=== PATIENT | male | born 1950 | race Two or more races ===

== ENCOUNTER 2018-03-16 05:22 | Inpatient (IN) | payer BC, MEDICAID ==
[~2018-03-16] VITALS: Ht 177.8 cm; Wt 104.3 kg
[2018-03-16] MEDS ORDERED: DEXTROSE 50% SYRINGE 50 ML IV ONE (05:24)
[2018-03-16] MEDS ORDERED: DEXTROSE (50%) 50ML SYRG IV ONE ×2 (05:45→10:00)
[2018-03-16 05:57] LABS: Basophils # (auto) 0 uL; Basophils % (auto) 0.8 % (0.0-2.0); Eosinophils # (auto) 0.3 uL; Eosinophils % (auto) 5.3 % (0.0-7.0); Hematocrit 25.1 % (41.0-53.0); Hemoglobin 8.4 g/dL (13.5-17.5); Lymphocytes # (auto) 0.9 uL; Lymphocytes % (auto) 15.4 % (10.0-50.0); Mean Corpuscular Hemoglobin 33.5 pg (28.0-32.0); Mean Corpuscular Hgb Conc. 33.5 g/dL (32.0-36.0); Mean Corpuscular Volume 100.1 fL (80.0-100.0); Monocytes # (auto) 0.3 uL; Monocytes % (auto) 5.6 % (0.0-12.0); Neutrophils # (auto) 4.1 uL; Neutrophils % (auto) 72.9 % (37.0-80.0); Platelet Count (auto) 119 10^3/uL (140-450); Red Blood Cells 2.51 10^6/uL (4.5-5.90); Red Cell Distribution Width 14.4 % (11.8-14.3); White Blood Cell 5.7 10^3/uL (4.4-10.8)
[2018-03-16 06:23] LABS: Alcohol, Urine < 3.0 mg/dL (0-5); Amphetamine Screen, Urine NEGATIVE (NEGATIVE); Barbiturate Scree,Urine NEGATIVE (NEGATIVE); Benzodiazephine Screen, Urine NEGATIVE (NEGATIVE); Cannabinoid Screen, Urine NEGATIVE (NEGATIVE); Cocaine Screen, Urine NEGATIVE (NEGATIVE); Opiate Scree,Urine NEGATIVE (NEGATIVE); Phencyclidine Screen, Urine NEGATIVE (NEGATIVE)
[2018-03-16 06:25] LABS: Alanine Aminotransferase 11 U/L (16-61); Alkaline Phosphatase 79 U/L (45-117); Anion Gap 8 (5-15); Aspartate Aminotransferase 14 U/L (15-37); BUN/Creatinine Ratio 15.3; Bilirubin, Total 0.3 mg/dL (0.2-1.0); Blood Alcohol < 3.0 mg/dL (0-5); Blood Urea Nitrogen 38 mg/dL (7-18); Carbon Dioxide 22 mmol/L (21-32); Chloride 111 mmol/L (98-107); GFR African American 34 mL/min; GFR Non-African American 28 mL/min; Glucose 194 mg/dL (74-106); Potassium 5.5 mmol/L (3.5-5.1); Sodium 141 mmol/L (136-145); Total Protein 5.5 g/dL (6.4-8.2)
[2018-03-16 06:34] LABS: Urine Amorphous Crystal MOD /hpf (None Seen); Urine Bacteria MOD /hpf (None Seen); Urine Blood Negative /uL (Negative); Urine Specific Gravity 1.008 (1.001-1.035); Urine WBC 32 /hpf (0 - 3)
[2018-03-16] MEDS ORDERED: cefTRIAXone 1GM/10ml IVPUSH 10 ML IV ONE ×2 (12:45→13:15)
[2018-03-16] MEDS: SODIUM CHLORIDE 0.9% 1,000 ML IV SCH (13:09)
[2018-03-16] MEDS ORDERED: NITROGLYCERIN 0.4 MG SL TAB SL PRN (13:15)
[2018-03-16] MEDS ORDERED: FUROSEMIDE 40 MG/4 ML VIAL IV ONE (13:15)
[2018-03-16] MEDS ORDERED: SODIUM POLYSTYRENE SULF 15GM/60ML SUSP PO ONE (13:15)
[2018-03-16] MEDS ORDERED: PROMETHAZINE HCL 25 MG/ML 1ML IV PRN (13:15)
[2018-03-16] MEDS ORDERED: LORazepam 0.5 MG TAB PO PRN (13:15)
[2018-03-16] MEDS ORDERED: DEXTROSE (50%) 50ML SYRG IV PRN (13:15)
[2018-03-16] MEDS ORDERED: SODIUM CHLORIDE 0.9% 1,000 ML IV ONE (13:15)
[2018-03-16] MEDS ORDERED: MORPHINE SULF INJ 2 MG/ML SYRINGE 1ML IV PRN (13:15)
[2018-03-16] MEDS: ENOXAPARIN SOD 30 MG/0.3 ML SYRINGE SC SCH (13:28)
[2018-03-16] MEDS ORDERED: PIPERACILLIN-TAZOB 2.25GM 50 ML IV ONE (13:30)
[2018-03-16] MEDS: LINEZOLID 600MG/300ML 300 ML IV SCH ×2 (14:22→21:26)
[2018-03-16] MEDS: ACCU-CHEK COMFORT CURVE STRIP VI SCH ×3 (15:36→23:36)
[2018-03-16 16:42] LABS: Calcium 7.5 mg/dL (8.5-10.1); Potassium 5.2 mmol/L (3.5-5.1)
[2018-03-16 16:51] VITALS: BP 132/67
[2018-03-16 17:07] VITALS: BP 132/67
[2018-03-16] MEDS ORDERED: PANT1INJ3 PO (17:37)
[2018-03-16] MEDS ORDERED: DIV250ER PO (17:37)
[2018-03-16] MEDS ORDERED: BACL10TA PO (17:37)
[2018-03-16] MEDS ORDERED: FERR-20 PO (17:37)
[2018-03-16] MEDS ORDERED: INSR100KIT IV (17:37)
[2018-03-16] MEDS ORDERED: ATOR20TA50 PO (17:37)
[2018-03-16] MEDS ORDERED: MOMLQ PO (17:37)
[2018-03-16] MEDS ORDERED: ZOLP5TAB5 PO (17:37)
[2018-03-16] MEDS ORDERED: NIF30XLT PO (17:37)
[2018-03-16] MEDS ORDERED: CLON0.1T PO (17:37)
[2018-03-16] MEDS ORDERED: INSLANTI SC (17:37)
[2018-03-16] MEDS ORDERED: ASCO500T11 PO (17:37)
[2018-03-16] MEDS ORDERED: NIC21P TOP (17:37)
[2018-03-16] MEDS ORDERED: ASPI81TA27 PO (17:37)
[2018-03-16] MEDS ORDERED: LORA-654 PO (17:37)
[2018-03-16] MEDS ORDERED: DOCU-94 PO (17:37)
[2018-03-16] MEDS ORDERED: CAR3125T OR (17:37)
[2018-03-16] MEDS ORDERED: B-COTAB59 OR (17:37)
[2018-03-16] MEDS ORDERED: PERCOT PO ×2 (17:37)
[2018-03-16] MEDS ORDERED: MULT-228 PO (17:37)
[2018-03-16] MEDS ORDERED: BIS10RS PR (17:37)
[2018-03-16] MEDS ORDERED: SODIENE35 RE (17:37)
[2018-03-16] MEDS: PIPERACILLIN-TAZOB 2.25GM 50 ML IV SCH ×2 (17:48→23:26)
[2018-03-16] MEDS: ACETAMINOPHEN 500 MG TAB PO PRN (21:26)
[2018-03-16 21:40] VITALS: BP 151/70
[2018-03-16] MEDS: MORPHINE SULF INJ 2 MG/ML SYRINGE 1ML IV PRN (23:07)
[2018-03-17] MEDS: SODIUM CHLORIDE 0.9% 1,000 ML IV SCH ×2 (01:39→12:13)
[2018-03-17] MEDS: MORPHINE SULF INJ 2 MG/ML SYRINGE 1ML IV PRN ×2 (03:28→21:17)
[2018-03-17] MEDS: ACCU-CHEK COMFORT CURVE STRIP VI SCH ×6 (03:28→23:25)
[2018-03-17 04:40] VITALS: BP 137/69
[2018-03-17] MEDS: PIPERACILLIN-TAZOB 2.25GM 50 ML IV SCH ×4 (06:05→23:25)
[2018-03-17 09:00] VITALS: BP 145/72
[2018-03-17] MEDS ORDERED: cefTRIAXone 1GM/10ml IVPUSH 10 ML IV SCH (09:00)
[2018-03-17] MEDS: PANTOPRAZOLE 40 MG TAB PO SCH (09:14)
[2018-03-17] MEDS: LINEZOLID 600MG/300ML 300 ML IV SCH ×2 (09:14→21:17)
[2018-03-17] MEDS: ENOXAPARIN SOD 30 MG/0.3 ML SYRINGE SC SCH (09:15)
[2018-03-17 13:00] VITALS: BP 142/64
[2018-03-17 14:02] LABS: BUN/Creatinine Ratio 13.3; Bilirubin, Total 0.3 mg/dL (0.2-1.0); Calcium 7.1 mg/dL (8.5-10.1); Hemoglobin 8.3 g/dL (13.5-17.5); Platelet Count (auto) 110 10^3/uL (140-450); Potassium 4.7 mmol/L (3.5-5.1); Red Cell Distribution Width 14.5 % (11.8-14.3); Total Protein 5.8 g/dL (6.4-8.2)
[2018-03-17 14:05] LABS: Hematocrit 25.1 % (41.0-53.0); Mean Corpuscular Hemoglobin 33.3 pg (28.0-32.0); Mean Corpuscular Hgb Conc. 33.3 g/dL (32.0-36.0); Mean Corpuscular Volume 100.1 fL (80.0-100.0); Red Blood Cells 2.51 10^6/uL (4.5-5.90); White Blood Cell 4.8 10^3/uL (4.4-10.8)
[2018-03-17 14:11] LABS: Protein, Urine 127.9 mg/dL (0.0-11.9)
[2018-03-17 14:21] LABS: Band Neutrophils % (manual) 0; Basophils % (manual) 0 (0.0-2.0); Blast Cells 0; Metamyelocytes % 0; Myelocytes % 0; Promyelocytes % 0; Reactive Lymphocytes 0
[2018-03-17 14:35] LABS: BUN/Creatinine Ratio 12.8; Calcium 6.9 mg/dL (8.5-10.1); Potassium 4.7 mmol/L (3.5-5.1)
[2018-03-17 16:48] LABS: Eosinophils % (manual) 16 (0-7); Lymphocytes % (manual) 38 (10.0-50.0); Monocytes % (manual) 3 (0-12)
[2018-03-17 17:00] VITALS: BP 165/76
[2018-03-17] MEDS ORDERED: MULTIPLE VITAMIN TAB PO ONE (17:45)
[2018-03-17] MEDS: Glucerna Carbsteady SHAKE Vanilla 8oz PO SCH ×2 (17:53→21:30)
[2018-03-17 21:31] VITALS: BP 184/78
[2018-03-17] MEDS: CARVEDILOL 3.125 MG TAB PO SCH (22:21)
[2018-03-17] MEDS: ACETAMINOPHEN 500 MG TAB PO PRN (23:26)
[2018-03-17] MEDS: cloNIDine HCL 0.1 MG TAB PO PRN (23:26)
[2018-03-18] MEDS: ACCU-CHEK COMFORT CURVE STRIP VI SCH ×6 (04:40→23:27)
[2018-03-18 04:49] VITALS: BP 145/71
[2018-03-18] MEDS: Glucerna Carbsteady SHAKE Vanilla 8oz PO SCH ×4 (06:00→21:13)
[2018-03-18] MEDS: SODIUM CHLORIDE 0.9% 1,000 ML IV SCH ×2 (06:06→19:37)
[2018-03-18] MEDS: PIPERACILLIN-TAZOB 2.25GM 50 ML IV SCH ×4 (06:06→23:27)
[2018-03-18] MEDS: MORPHINE SULF INJ 2 MG/ML SYRINGE 1ML IV PRN ×4 (06:14→22:18)
[2018-03-18 09:00] VITALS: BP 178/78
[2018-03-18] MEDS ORDERED: ASPirin-EC 81 mg tab PO ONE (10:15)
[2018-03-18] MEDS: PANTOPRAZOLE 40 MG TAB PO SCH (10:35)
[2018-03-18] MEDS: LINEZOLID 600MG/300ML 300 ML IV SCH ×2 (10:35→21:12)
[2018-03-18] MEDS: NIFEdipine ER 30 MG TAB PO SCH (10:36)
[2018-03-18] MEDS: CARVEDILOL 3.125 MG TAB PO SCH ×2 (10:37→21:13)
[2018-03-18] MEDS: ENOXAPARIN SOD 30 MG/0.3 ML SYRINGE SC SCH (10:37)
[2018-03-18 11:49] LABS: Hematocrit 26.4 % (41.0-53.0); Hemoglobin 8.9 g/dL (13.5-17.5); Mean Corpuscular Hgb Conc. 33.9 g/dL (32.0-36.0); Mean Corpuscular Volume 100.5 fL (80.0-100.0); Platelet Count (auto) 125 10^3/uL (140-450); Red Blood Cells 2.63 10^6/uL (4.5-5.90); Red Cell Distribution Width 14.3 % (11.8-14.3); White Blood Cell 4.8 10^3/uL (4.4-10.8)
[2018-03-18 11:51] LABS: BUN/Creatinine Ratio 11.8; Calcium 7.1 mg/dL (8.5-10.1); Potassium 4.4 mmol/L (3.5-5.1)
[2018-03-18 12:39] LABS: Band Neutrophils % (manual) 0; Basophils % (manual) 0 (0.0-2.0); Blast Cells 0; Metamyelocytes % 0; Myelocytes % 0; Promyelocytes % 0; Reactive Lymphocytes 0
[2018-03-18 13:00] VITALS: BP 162/78
[2018-03-18] MEDS: cloNIDine HCL 0.1 MG TAB PO PRN ×2 (13:36→22:19)
[2018-03-18 14:06] LABS: Eosinophils % (manual) 17 (0-7); Lymphocytes % (manual) 27 (10.0-50.0); Monocytes % (manual) 9 (0-12)
[2018-03-18 17:00] VITALS: BP 194/87
[2018-03-18 18:05] VITALS: BP 159/76
[2018-03-18] MEDS: ATORVASTATIN 20 MG TAB PO SCH (21:13)
[2018-03-18] MEDS: TEMAZEPAM 15 MG CAP PO PRN (23:28)
[2018-03-19] MEDS: SODIUM CHLORIDE 0.9% 1,000 ML IV SCH ×2 (04:01→09:45)
[2018-03-19] MEDS: cloNIDine HCL 0.1 MG TAB PO PRN (04:35)
[2018-03-19] MEDS: ACCU-CHEK COMFORT CURVE STRIP VI SCH ×5 (04:35→20:16)
[2018-03-19] MEDS: MORPHINE SULF INJ 2 MG/ML SYRINGE 1ML IV PRN ×5 (04:35→20:32)
[2018-03-19 04:54] VITALS: BP 164/75
[2018-03-19] MEDS: PIPERACILLIN-TAZOB 2.25GM 50 ML IV SCH ×3 (05:27→18:27)
[2018-03-19] MEDS: Glucerna Carbsteady SHAKE Vanilla 8oz PO SCH ×4 (05:34→22:08)
[2018-03-19 09:00] VITALS: BP 153/78
[2018-03-19] MEDS: LACTULOSE 20Gm/30ML SOLN PO PRN ×2 (09:04→09:34)
[2018-03-19] MEDS: ASPirin-EC 81 mg tab PO SCH (09:34)
[2018-03-19] MEDS: ENOXAPARIN SOD 40 MG/0.4 ML SYRINGE SC SCH (09:34)
[2018-03-19] MEDS: CARVEDILOL 3.125 MG TAB PO SCH ×2 (09:37→22:07)
[2018-03-19] MEDS: LINEZOLID 600MG/300ML 300 ML IV SCH ×2 (09:39→22:06)
[2018-03-19] MEDS: NIFEdipine ER 30 MG TAB PO SCH (09:58)
[2018-03-19] MEDS: PANTOPRAZOLE 40 MG TAB PO SCH (09:59)
[2018-03-19] MEDS ORDERED: NIFEdipine ER 30 MG TAB PO ONE (14:45)
[2018-03-19 16:12] VITALS: BP 158/71
[2018-03-19 17:00] VITALS: BP 139/76
[2018-03-19 20:00] VITALS: BP 145/70
[2018-03-19 22:00] VITALS: BP 145/70
[2018-03-19] MEDS: ATORVASTATIN 20 MG TAB PO SCH (22:08)
[2018-03-19] MEDS: TEMAZEPAM 15 MG CAP PO PRN (22:09)
[2018-03-20] MEDS: ACCU-CHEK COMFORT CURVE STRIP VI SCH ×4 (04:07→11:42)
[2018-03-20 05:00] VITALS: BP 149/73
[2018-03-20] MEDS: PIPERACILLIN-TAZOB 2.25GM 50 ML IV SCH ×3 (05:34→11:41)
[2018-03-20] MEDS: Glucerna Carbsteady SHAKE Vanilla 8oz PO SCH ×2 (05:35→11:41)
[2018-03-20 06:47] LABS: Basophils # (auto) 0.1 uL; Eosinophils # (auto) 0.7 uL; Hematocrit 25.8 % (41.0-53.0); Monocytes # (auto) 0.4 uL; Neutrophils # (auto) 1.7 uL; Nucleated Red Blood Cells % 0.1 %; Red Blood Cells 2.61 10^6/uL (4.5-5.90); Red Cell Distribution Width 13.7 % (11.8-14.3)
[2018-03-20 06:57] LABS: Basophils % (auto) 1.2 % (0.0-2.0); Eosinophils % (auto) 12.4 % (0.0-7.0); Hemoglobin 8.9 g/dL (13.5-17.5); Lymphocytes # (auto) 2.7 uL; Lymphocytes % (auto) 48.2 % (10.0-50.0); Mean Corpuscular Hgb Conc. 34.4 g/dL (32.0-36.0); Mean Corpuscular Volume 98.9 fL (80.0-100.0); Monocytes % (auto) 7.4 % (0.0-12.0); Neutrophils % (auto) 30.8 % (37.0-80.0); Platelet Count (auto) 130 10^3/uL (140-450); White Blood Cell 5.5 10^3/uL (4.4-10.8)
[2018-03-20 07:10] LABS: BUN/Creatinine Ratio 9.5; Calcium 7.4 mg/dL (8.5-10.1); Potassium 3.9 mmol/L (3.5-5.1)
[2018-03-20 09:00] VITALS: BP 141/88
[2018-03-20] MEDS: MORPHINE SULF INJ 2 MG/ML SYRINGE 1ML IV PRN ×2 (09:12→13:17)
[2018-03-20] MEDS ORDERED: NIFEdipine ER 30 MG TAB PO SCH (10:00)
[2018-03-20] MEDS: PANTOPRAZOLE 40 MG TAB PO SCH (10:01)
[2018-03-20] MEDS: ASPirin-EC 81 mg tab PO SCH (10:01)
[2018-03-20] MEDS: CARVEDILOL 3.125 MG TAB PO SCH (10:02)
[2018-03-20] MEDS: LINEZOLID 600MG/300ML 300 ML IV SCH (10:04)
[2018-03-20] MEDS: ENOXAPARIN SOD 40 MG/0.4 ML SYRINGE SC SCH (10:04)
[2018-03-20 13:09] VITALS: BP 140/76
[2018-03-20 16:51] VITALS: BP 165/84
== END 2018-03-20 17:45 | DRG 871 ==
LOC: EDSEX 05:22 → ER 05:22 → TELE 05:23 → TELE-WESTW 15:17
PROVIDERS: ADMIT Internal Medicine; ATTEND Internal Medicine
DX: A41.9 Sepsis, unspecified organism (principal); R53.2 Functional quadriplegia; E43 Unspecified severe protein-calorie malnutrition; G92 Toxic encephalopathy; N17.0 Acute kidney failure with tubular necrosis; N39.0 Urinary tract infection, site not specified; N18.4 Chronic kidney disease, stage 4 (severe); E87.1 Hypo-osmolality and hyponatremia; L03.114 Cellulitis of left upper limb; D63.1 Anemia in chronic kidney disease; D69.6 Thrombocytopenia, unspecified; E11.21 Type 2 diabetes mellitus with diabetic nephropathy; E11.22 Type 2 diabetes mellitus with diabetic chronic kidney disease; E11.40 Type 2 diabetes mellitus with diabetic neuropathy, unspecified; B96.89 Other specified bacterial agents as the cause of diseases classified elsewhere; E11.51 Type 2 diabetes mellitus with diabetic peripheral angiopathy without gangrene; E87.5 Hyperkalemia; E11.649 Type 2 diabetes mellitus with hypoglycemia without coma; I12.9 Hypertensive chronic kidney disease with stage 1 through stage 4 chronic kidney disease, or unspecified chronic kidney disease; Z86.14 Personal history of Methicillin resistant Staphylococcus aureus infection; Z86.73 Personal history of transient ischemic attack (TIA), and cerebral infarction without residual deficits; Z89.512 Acquired absence of left leg below knee; Z88.5 Allergy status to narcotic agent; Z89.421 Acquired absence of other right toe(s); Z68.33 Body mass index [BMI] 33.0-33.9, adult
CPT/HCPCS: 36415; 36600; 51702; 71045; 73060; 73090; 80048; 80053; 80061; 80307; 80320; 81001; 82570; 82805; 82962; 83036; 83880; 84156; 84300; 84484; 85007; 85025; 85027; 85652; 87040; 87077; 87081; 87086; 87186; 93005; 94761; 96361; 96372; 96374; 96375; 96376; A6257; J0696; J2543